=== PATIENT | female | born 1985 | race African-American/Black ===

== ENCOUNTER 2023-10-23 22:10 | Emergency (ER) | payer OTHER ==
[~2023-10-23] VITALS: Ht 170.2 cm; Wt 100.0 kg
[~2023-10-23 22:10] MED LIST: FURO20TA4 PO; PANT40TA51 PO; SPIR25TA PO
[2023-10-23 22:19] VITALS: TEMP 98.3; O2SAT 100
[2023-10-23 23:18] LABS: BASOPHILS % 0.9 % (0.0-2.0); EOSINOPHILS % 6.7 % (0.0-5.0); HEMATOCRIT. 28.9 % (36.0-48.0); HEMOGLOBIN. 9.2 g/dL (12.0-16.0); LYMPHOCYTES % 17.1 % (20.0-50.0); MEAN CORPUSCULAR HEMOGLOBIN 32.2 pg (28.0-32.0); MEAN CORPUSCULAR VOLUME 100.7 fL (81.0-99.0); MEAN PLATELET VOLUME 8.2 fl (7.4-10.4); MONOCYTES % 5.8 % (2.0-8.0); NEUTROPHILS % 69.5 % (40.0-76.0); PLATELET 191 x1000/uL (130-400); RED BLOOD CELL COUNT 2.87 mill/uL (4.2-5.4); RED CELL DISTRIBUTION WIDTH 20.5 % (11.6-14.6)
[2023-10-23 23:37] LABS: ALANINE AMINOTRANSFERASE 19 IU/L (10-49); ALBUMIN 2.3 g/dL (3.2-4.8); ASPARTATE AMINOTRANSFERASE 64 IU/L (<34); CALCIUM 7.6 mg/dL (8.7-10.4); CARBON DIOXIDE 18 mEq/L (21-32); CHLORIDE 110 mEq/L (98-107); CREATININE 1.7 mg/dL (0.6-1.0); GLUCOSE 91 mg/dL (70-105); PROTEIN TOTAL 6.9 g/dL (6.0-8.3); SODIUM 142 mEq/L (136-145); UREA NITROGEN BLOOD 7 mg/dL (9-23)
[2023-10-23 23:54] LABS: DIFFERENTIAL COMMENT 1
[2023-10-24 00:03] LABS: POTASSIUM 2.6 mEq/L (3.5-5.1)
[2023-10-24 05:36] LABS: CLARITY URINE CLOUDY (CLEAR); COLOR URINE DARK YELLOW (YELLOW); GLUCOSE URINE NEGATIVE (NEGATIVE); KETONES URINE NEGATIVE (NEGATIVE); NITRITE URINE NEGATIVE (NEGATIVE); OCCULT BLOOD URINE NEGATIVE (NEGATIVE); PROTEIN URINE NEGATIVE (NEGATIVE); SPECIFIC GRAVITY URINE 1.016 (1.005-1.030)
[2023-10-24 05:37] LABS: LEUKOCYTE ESTERASE URINE TRACE (NEGATIVE)
[2023-10-24 06:44] LABS: SQUAMOUS EPITHELIAL CELL URINE 3+ /lpf (RARE/1+)
[2023-10-24 06:46] LABS: RBC URINE 0-2 /hpf (0-2)
[2023-10-24 06:48] LABS: BACTERIA URINE TRACE
[2023-10-24] MEDS ORDERED: KETOROLAC 15MG/ML VIAL IV NR (09:00)
[2023-10-24] MEDS ORDERED: POTASSIUM CHLORIDE INJ 40 MEQ in DEXT 5% WATER 250 ML IV ONE (09:00)
[2023-10-24] MEDS ORDERED: KCL 20MEQ/100ML X 2 FOR TOTAL KCL 40MEQ/200ML IV SCH (09:15)
[2023-10-24 13:39] LABS: HCG SCREEN NEGATIVE
[2023-10-24 14:39] VITALS: BP 115/65; PULSE 89; RESP 14
== END 2023-10-24 14:49 | disposition short-term general hospital (02) ==
LOC: ER 22:10
DX: K74.60 Unspecified cirrhosis of liver (principal); I12.9 Hypertensive chronic kidney disease with stage 1 through stage 4 chronic kidney disease, or unspecified chronic kidney disease; N18.9 Chronic kidney disease, unspecified; E87.6 Hypokalemia
CPT/HCPCS: 80053; 81025; 83880; 83690; 85025; 36415; 71045; 93005; 99291; 81003; 84703; 74176; 96365; 96375; J1885; J3480; Z7610 ×2; 99285

== ENCOUNTER 2023-12-29 13:49 | Emergency (ER) | payer OTHER ==
[~2023-12-29] VITALS: Ht 170.2 cm; Wt 93.0 kg
[2023-12-29 13:57] VITALS: BP 117/44; PULSE 66; RESP 16; TEMP 98.3; O2SAT 100
== END 2023-12-29 15:51 | disposition home or self-care (01) ==
LOC: ER 13:49
DX: R18.8 Other ascites (principal); K72.90 Hepatic failure, unspecified without coma; I10 Essential (primary) hypertension
CPT/HCPCS: 99281

== ENCOUNTER 2024-02-09 04:22 | Emergency (ER) | payer OTHER ==
[~2024-02-09] VITALS: Ht 170.2 cm; Wt 104.0 kg
[2024-02-09 04:25] VITALS: TEMP 98.7; O2SAT 100
[2024-02-09 04:58] LABS: EOSINOPHILS % 3.3 % (0.0-5.0); HEMATOCRIT. 25.5 % (36.0-48.0); HEMOGLOBIN. 8.5 g/dL (12.0-16.0); LYMPHOCYTES % 34.8 % (20.0-50.0); MEAN CORPUSCULAR HEMOGLOBIN 30.6 pg (28.0-32.0); MEAN CORPUSCULAR HGB CONC 33.2 g/dL (31.0-37.0); MEAN PLATELET VOLUME 8.4 fl (7.4-10.4); MONOCYTES % 9.7 % (2.0-8.0); NEUTROPHILS % 51.2 % (40.0-76.0); PLATELET 142 x1000/uL (130-400); RED BLOOD CELL COUNT 2.77 mill/uL (4.2-5.4); RED CELL DISTRIBUTION WIDTH 13.4 % (11.6-14.6); WHITE BLOOD COUNT 4.5 x1000/uL (4.5-11.0)
[2024-02-09 05:12] LABS: CLARITY URINE TURBID (CLEAR); COLOR URINE DARK YELLOW (YELLOW); GLUCOSE URINE NEGATIVE (NEGATIVE); KETONES URINE NEGATIVE (NEGATIVE); LEUKOCYTE ESTERASE URINE NEGATIVE (NEGATIVE); NITRITE URINE NEGATIVE (NEGATIVE); OCCULT BLOOD URINE NEGATIVE (NEGATIVE); PH URINE 6.5 (4.5-8.0); PROTEIN URINE NEGATIVE (NEGATIVE); SPECIFIC GRAVITY URINE 1.023 (1.005-1.030)
[2024-02-09 05:17] LABS: ALANINE AMINOTRANSFERASE < 7 IU/L (10-49); ALBUMIN 2.9 g/dL (3.2-4.8); ASPARTATE AMINOTRANSFERASE 29 IU/L (<34); BILIRUBIN TOTAL 1.7 mg/dL (0.1-1.0); CALCIUM 8.3 mg/dL (8.7-10.4); CARBON DIOXIDE 20 mEq/L (21-32); CHLORIDE 113 mEq/L (98-107); CREATININE 0.6 mg/dL (0.6-1.0); GLUCOSE 78 mg/dL (70-105); POTASSIUM 3.2 mEq/L (3.5-5.1); PROTEIN TOTAL 6.6 g/dL (6.0-8.3); SODIUM 140 mEq/L (136-145); UREA NITROGEN BLOOD 8 mg/dL (9-23)
[2024-02-09 05:38] LABS: BACTERIA URINE 2+; CALCIUM OXALATE CRYSTALS URINE 2+ /lpf; SQUAMOUS EPITHELIAL CELL URINE 1+ /lpf (RARE/1+); WBC URINE 0-2 /hpf (0-2)
[2024-02-09 06:59] VITALS: BP 107/66; PULSE 76; RESP 16
== END 2024-02-09 07:25 | disposition home or self-care (01) ==
LOC: ER 04:22
DX: K72.10 Chronic hepatic failure without coma (principal); J45.909 Unspecified asthma, uncomplicated; Z98.890 Other specified postprocedural states
CPT/HCPCS: 36415; 80053; 81003; 81025; 85025; 93005; 99284

== ENCOUNTER 2024-09-16 08:58 | Emergency (ER) | payer OTHER ==
[~2024-09-16] VITALS: Ht 170.2 cm; Wt 137.0 kg
[2024-09-16 09:00] VITALS: O2SAT 100
[2024-09-16 10:00] LABS: BASOPHILS % 0.5 % (0.0-2.0); DIFFERENTIAL COMMENT 0; EOSINOPHILS % 0.9 % (0.0-5.0); HEMATOCRIT. 31.2 % (36.0-48.0); HEMOGLOBIN. 10.2 g/dL (12.0-16.0); LYMPHOCYTES % 20.5 % (20.0-50.0); MEAN CORPUSCULAR HEMOGLOBIN 25.2 pg (28.0-32.0); MEAN CORPUSCULAR HGB CONC 32.9 g/dL (31.0-37.0); MEAN CORPUSCULAR VOLUME 76.7 fL (81.0-99.0); MEAN PLATELET VOLUME 7.8 fl (7.4-10.4); MONOCYTES % 6.2 % (2.0-8.0); NEUTROPHILS % 71.9 % (40.0-76.0); PLATELET 156 x1000/uL (130-400); RED BLOOD CELL COUNT 4.06 mill/uL (4.2-5.4); RED CELL DISTRIBUTION WIDTH 16.9 % (11.6-14.6); WHITE BLOOD COUNT 4.6 x1000/uL (4.5-11.0)
[2024-09-16 10:05] LABS: CHLORIDE 104 mEq/L (98-107); POTASSIUM 3.5 mEq/L (3.5-5.1); SODIUM 139 mEq/L (136-145)
[2024-09-16 10:06] LABS: CARBON DIOXIDE 24 mEq/L (21-32)
[2024-09-16 10:11] LABS: CREATININE 0.7 mg/dL (0.6-1.0); GLUCOSE 101 mg/dL (70-105); PROTHROMBIN TIME 11.3 sec (9.6-11.0); UREA NITROGEN BLOOD 7 mg/dL (9-23)
[2024-09-16 10:13] LABS: ALANINE AMINOTRANSFERASE 26 IU/L (10-49); ALBUMIN 4.3 g/dL (3.2-4.8); ASPARTATE AMINOTRANSFERASE 76 IU/L (<34); BILIRUBIN DIRECT 0.6 mg/dL (<=3.0); BILIRUBIN TOTAL 1.7 mg/dL (0.1-1.0); PROTEIN TOTAL 8.1 g/dL (6.0-8.3)
[2024-09-16] MEDS: ONDANSETRON HCL 4MG/2ML INJ IV ONE (10:14)
[2024-09-16 10:17] LABS: TROPONIN I HIGH SENSITIVITY < 4 ng/L (3.0-34)
[2024-09-16] MEDS: FAMOTIDINE 20MG/2ML VIAL IV ONE (10:20)
[2024-09-16] MEDS: SODIUM CHLORIDE 0.9% 500 ML IV ONE (10:20)
[2024-09-16] MEDS: KETOROLAC 15MG/ML VIAL IV ONE (11:09)
[2024-09-16] MEDS: DIPHENHYDRAMINE 50MG/ML VIAL IV ONE (11:09)
[2024-09-16 11:43] VITALS: BP 129/53; PULSE 85; RESP 18; TEMP 36.78072; O2SAT 99
== END 2024-09-16 12:19 | disposition short-term general hospital (02) ==
LOC: ER 09:09 → EDBEDREQ 09:52 → CANBEDREQ 12:19 → ER 12:19
DX: K80.00 Calculus of gallbladder with acute cholecystitis without obstruction (principal); J45.909 Unspecified asthma, uncomplicated; Z98.890 Other specified postprocedural states
CPT/HCPCS: 80076; 80048; 81025; 82962; 83690; 85025; 85610; 84484; 36415; 71045; 76705; 93005; 96361; 96374; 96375; 99285; J1200; J3490; J1885; J2405; J7040; Z7610 ×2

== ENCOUNTER 2024-09-19 05:02 | Emergency (ER) | payer OTHER ==
[~2024-09-19] VITALS: Ht 175.3 cm; Wt 90.0 kg
[2024-09-19 05:09] VITALS: O2SAT 99
[2024-09-19] MEDS ORDERED: SODIUM CHLORIDE 0.9% 1,000 ML IV ONE (05:30)
[2024-09-19 06:06] LABS: CHLORIDE 109 mEq/L (98-107); POTASSIUM 3.7 mEq/L (3.5-5.1); SODIUM 139 mEq/L (136-145)
[2024-09-19 06:07] LABS: CALCIUM 9.5 mg/dL (8.7-10.4); CARBON DIOXIDE 22 mEq/L (21-32)
[2024-09-19 06:10] LABS: AMMONIA < 17 uMol/L (<32); BASOPHILS % 0.4 % (0.0-2.0); DIFFERENTIAL COMMENT 0; EOSINOPHILS % 5.1 % (0.0-5.0); HEMATOCRIT. 32.6 % (36.0-48.0); HEMOGLOBIN. 10.7 g/dL (12.0-16.0); INR 1.1; MEAN CORPUSCULAR HEMOGLOBIN 26.2 pg (28.0-32.0); MEAN CORPUSCULAR VOLUME 79.5 fL (81.0-99.0); MEAN PLATELET VOLUME 7.9 fl (7.4-10.4); MONOCYTES % 6.2 % (2.0-8.0); NEUTROPHILS % 58.3 % (40.0-76.0); PLATELET 138 x1000/uL (130-400); PROTHROMBIN TIME 11.9 sec (9.6-11.0); RED BLOOD CELL COUNT 4.09 mill/uL (4.2-5.4); RED CELL DISTRIBUTION WIDTH 17.1 % (11.6-14.6); WHITE BLOOD COUNT 4.5 x1000/uL (4.5-11.0)
[2024-09-19 06:12] LABS: CREATININE 0.7 mg/dL (0.6-1.0); GLUCOSE 93 mg/dL (70-105); UREA NITROGEN BLOOD 8 mg/dL (9-23)
[2024-09-19 06:14] LABS: ALANINE AMINOTRANSFERASE 19 IU/L (10-49); ALBUMIN 4.3 g/dL (3.2-4.8); ASPARTATE AMINOTRANSFERASE 55 IU/L (<34); BILIRUBIN DIRECT 0.4 mg/dL (<=3.0)
[2024-09-19 06:15] LABS: BILIRUBIN TOTAL 1.1 mg/dL (0.1-1.0); PROTEIN TOTAL 7.9 g/dL (6.0-8.3)
[2024-09-19 06:23] LABS: ETHANOL BLOOD < 10 mg/dL (<10)
[2024-09-19 10:18] VITALS: BP 118/56; PULSE 77; RESP 18; TEMP 37.16964; O2SAT 99
== END 2024-09-19 10:43 | disposition left against medical advice (07) ==
LOC: ER 05:02 → EDBEDREQTM 10:21 → EDBEDREQ 10:21 → ER 10:43
DX: K92.2 Gastrointestinal hemorrhage, unspecified (principal); K74.60 Unspecified cirrhosis of liver; Z79.899 Other long term (current) drug therapy
CPT/HCPCS: 80076; 80048; 80320; 82140; 83605; 83690; 85025; 85610; 86850; 86900; 86901; 36415; 71045; 70450; 99285; J7030; Z7610 ×2; G0480

== ENCOUNTER 2025-01-25 11:51 | Inpatient (IN) | payer OTHER ==
[~2025-01-25] VITALS: Ht 162.6 cm; Wt 117.1 kg
[2025-01-25] MEDS: PANTOPRAZOLE SODIUM 40 MG/VIAL IV ONE (13:08)
[2025-01-25] MEDS: ONDANSETRON HCL 4MG/2ML INJ IV ONE (13:08)
[2025-01-25] MEDS: SODIUM CHLORIDE 0.9% 1,000 ML IV ONE (13:08)
[2025-01-25 13:11] LABS: BASOPHILS % 0.1 % (0.0-2.0); HEMATOCRIT. 31.6 % (36.0-48.0); HEMOGLOBIN. 10.6 g/dL (12.0-16.0); LYMPHOCYTES % 14.6 % (20.0-50.0); MEAN CORPUSCULAR HEMOGLOBIN 28.2 pg (28.0-32.0); MEAN CORPUSCULAR HGB CONC 33.6 g/dL (31.0-37.0); MEAN PLATELET VOLUME 7.8 fl (7.4-10.4); MONOCYTES % 1.2 % (2.0-8.0); NEUTROPHILS % 84.1 % (40.0-76.0); PLATELET 66 x1000/uL (130-400); RED BLOOD CELL COUNT 3.76 mill/uL (4.2-5.4); RED CELL DISTRIBUTION WIDTH 21.3 % (11.6-14.6); WHITE BLOOD COUNT 3.9 x1000/uL (4.5-11.0)
[2025-01-25 13:23] LABS: CHLORIDE 100 mEq/L (98-107); POTASSIUM 3.4 mEq/L (3.5-5.1); SODIUM 136 mEq/L (136-145)
[2025-01-25 13:24] LABS: CALCIUM 8.7 mg/dL (8.7-10.4); CARBON DIOXIDE 23 mEq/L (21-32)
[2025-01-25 13:29] LABS: CREATININE 0.8 mg/dL (0.6-1.0); GLUCOSE 120 mg/dL (70-105); UREA NITROGEN BLOOD 7 mg/dL (9-23)
[2025-01-25 13:30] LABS: LACTIC ACID 3.4 mmol/L (0.4-2.0)
[2025-01-25 13:31] LABS: ALANINE AMINOTRANSFERASE 26 IU/L (10-49); ALBUMIN 4.1 g/dL (3.2-4.8); ASPARTATE AMINOTRANSFERASE 120 IU/L (<34); BILIRUBIN DIRECT 1.4 mg/dL (<=3.0); BILIRUBIN TOTAL 3.5 mg/dL (0.1-1.0)
[2025-01-25 13:33] LABS: INR 1.3; PROTHROMBIN TIME 13.5 sec (9.6-11.0)
[2025-01-25 13:36] LABS: ETHANOL BLOOD < 10 mg/dL (<10)
[2025-01-25 13:37] LABS: HCG SCREEN NEGATIVE
[2025-01-25] MEDS: MORPHINE SULFATE 2 MG/ML INJ (NOT FOR IM USE) IV NR (13:39)
[2025-01-25] MEDS: MORPHINE SULFATE 2 MG/ML INJ (NOT FOR IM USE) IV ONE (14:40)
[2025-01-25 15:00] LABS: CLARITY URINE TURBID (CLEAR); COLOR URINE ORANGE (YELLOW); GLUCOSE URINE NEGATIVE (NEGATIVE); KETONES URINE NEGATIVE (NEGATIVE); LEUKOCYTE ESTERASE URINE 3+ (NEGATIVE); NITRITE URINE POSITIVE (NEGATIVE); OCCULT BLOOD URINE 3+ (NEGATIVE); PROTEIN URINE 3+ (NEGATIVE); SPECIFIC GRAVITY URINE 1.017 (1.005-1.030); UROBILINOGEN URINE 0.2 E.U./dL (0.2-1.0)
[2025-01-25] MEDS ORDERED: LEVOFLOXACIN 750MG PREMIX 150 ML IV NR (15:00)
[2025-01-25] MEDS: SODIUM CHLORIDE 0.9% (SEPSIS BOLUS) IV ONE (15:15)
[2025-01-25 15:18] LABS: BACTERIA URINE 2+; WBC URINE TNTC /hpf (0-2)
[2025-01-25 15:19] LABS: SQUAMOUS EPITHELIAL CELL URINE NONE SEEN /lpf (RARE/1+)
[2025-01-25] MEDS: METRONIDAZOLE 500 MG PREMIX 100 ML IV NR (16:02)
[2025-01-25 16:30] VITALS: BP 108/36; PULSE 127; RESP 20; TEMP 37.1
[2025-01-25] MEDS ORDERED: CLONIDINE 0.1MG TABLET PO PRN (16:45)
[2025-01-25] MEDS ORDERED: NALOXONE HCL 0.4MG/ML VIAL IV PRN (17:00)
[2025-01-25] MEDS: SODIUM CHLORIDE 0.9% 1,000 ML IV SCH (17:41)
[2025-01-25] MEDS: ACETAMINOPHEN 325MG TABLET PO PRN (17:47)
[2025-01-25] MEDS: PIPERACILLIN/TAZO 3.375G/50ML 50 ML IV SCH (17:47)
[2025-01-25] MEDS ORDERED: LEVO75TA7 MT (19:00)
[2025-01-25] MEDS: MORPHINE SULFATE 2 MG/ML INJ (NOT FOR IM USE) IV PRN (19:29)
[2025-01-25 20:00] VITALS: BP 122/51; PULSE 104; RESP 20; TEMP 36.6; O2SAT 92
[2025-01-25 20:26] LABS: HEPATITIS B SURFACE ANTIGEN NEGATIVE (Negative)
[2025-01-25 20:47] LABS: HEPATITIS C AB NON REACTIVE (Neg) (Negative)
[2025-01-25] MEDS: ONDANSETRON HCL 4MG/2ML INJ IV PRN (22:36)
[2025-01-25] MEDS: LEVOFLOXACIN 750MG PREMIX 150 ML IV NR (22:52)
[2025-01-26] VITALS: BP 122/51; PULSE 129; RESP 20; TEMP 36.7; O2SAT 98
[2025-01-26 04:00] VITALS: BP 126/57; PULSE 104; RESP 20; TEMP 36.3; O2SAT 100
[2025-01-26 05:54] LABS: CARBON DIOXIDE 21 mEq/L (21-32); CHLORIDE 102 mEq/L (98-107); POTASSIUM 3.1 mEq/L (3.5-5.1); SODIUM 136 mEq/L (136-145)
[2025-01-26 05:55] LABS: CALCIUM 8.4 mg/dL (8.7-10.4)
[2025-01-26 06:00] LABS: CREATININE 0.8 mg/dL (0.6-1.0); GLUCOSE 100 mg/dL (70-105); UREA NITROGEN BLOOD 10 mg/dL (9-23)
[2025-01-26 08:00] VITALS: BP 109/55; PULSE 95; RESP 22; TEMP 37.2; O2SAT 97
[2025-01-26] MEDS: PANTOPRAZOLE SODIUM 40 MG/VIAL IV SCH (08:34)
[2025-01-26 08:49] LABS: BASOPHILS % 0.1 % (0.0-2.0); DIFFERENTIAL COMMENT 0; EOSINOPHILS % 0.1 % (0.0-5.0); HEMOGLOBIN. 9.2 g/dL (12.0-16.0); LYMPHOCYTES % 10.7 % (20.0-50.0); MEAN CORPUSCULAR HEMOGLOBIN 29.1 pg (28.0-32.0); MEAN CORPUSCULAR HGB CONC 34.2 g/dL (31.0-37.0); MEAN CORPUSCULAR VOLUME 85.2 fL (81.0-99.0); MEAN PLATELET VOLUME 8.4 fl (7.4-10.4); MONOCYTES % 1.1 % (2.0-8.0); PLATELET 51 x1000/uL (130-400); RED BLOOD CELL COUNT 3.17 mill/uL (4.2-5.4); RED CELL DISTRIBUTION WIDTH 21.1 % (11.6-14.6); WHITE BLOOD COUNT 6.3 x1000/uL (4.5-11.0)
[2025-01-26 12:00] VITALS: BP 110/60; PULSE 96; RESP 20; TEMP 37; O2SAT 98
[2025-01-26] MEDS ORDERED: KCL 20MEQ/100ML PREMIX 100 ML IV SCH (12:00)
[2025-01-26] MEDS: POTASSIUM CHLORIDE 40MEQ in DEXT 5% WATER 250ML IV NR (13:53)
[2025-01-26] MEDS ORDERED: VANCOMYCIN 2,000 MG in DEXT 5% WATER 500 ML IV NR (14:00)
[2025-01-26 16:00] VITALS: BP 108/89; PULSE 98; RESP 20; TEMP 36.8; O2SAT 95
[2025-01-26 20:50] VITALS: BP 107/38; PULSE 96; RESP 20; TEMP 36.3; O2SAT 98
[2025-01-26] MEDS: LACTOBACILLUS GG CAPSULE PO SCH (20:58)
[2025-01-27] VITALS: BP 131/77; PULSE 125; RESP 18; TEMP 36.2; O2SAT 96
[2025-01-27] MEDS ORDERED: VANCOMYCIN 1G PREMIX 200 ML IV SCH
[2025-01-27] MEDS ORDERED: LEVETIRACETAM 1,000MG in NACL 100ML PREMIX IV ONE (00:30)
[2025-01-27] MEDS: LORAZEPAM 2MG/ML INJ IV PRN (00:52)
[2025-01-27] MEDS: LEVETIRACETAM 1000MG PREMIX 100 ML IV NR (01:26)
[2025-01-27 07:25] LABS: CHLORIDE 102 mEq/L (98-107); POTASSIUM 3.1 mEq/L (3.5-5.1); SODIUM 135 mEq/L (136-145)
[2025-01-27 07:27] LABS: CARBON DIOXIDE 25 mEq/L (21-32)
[2025-01-27 07:32] LABS: BASOPHILS % 0.1 % (0.0-2.0); CREATININE 0.6 mg/dL (0.6-1.0); EOSINOPHILS % 0.8 % (0.0-5.0); HEMATOCRIT. 28.7 % (36.0-48.0); HEMOGLOBIN. 9.5 g/dL (12.0-16.0); LYMPHOCYTES % 24.2 % (20.0-50.0); MEAN CORPUSCULAR HEMOGLOBIN 27.8 pg (28.0-32.0); MEAN CORPUSCULAR HGB CONC 32.9 g/dL (31.0-37.0); MEAN CORPUSCULAR VOLUME 84.4 fL (81.0-99.0); MEAN PLATELET VOLUME 8.1 fl (7.4-10.4); NEUTROPHILS % 72.9 % (40.0-76.0); PLATELET 52 x1000/uL (130-400); RED BLOOD CELL COUNT 3.41 mill/uL (4.2-5.4); WHITE BLOOD COUNT 4.4 x1000/uL (4.5-11.0)
[2025-01-27 07:33] LABS: GLUCOSE 92 mg/dL (70-105)
[2025-01-27 07:34] LABS: ALANINE AMINOTRANSFERASE 16 IU/L (10-49); ALBUMIN 3.3 g/dL (3.2-4.8); ASPARTATE AMINOTRANSFERASE 64 IU/L (<34); UREA NITROGEN BLOOD 10 mg/dL (9-23)
[2025-01-27 07:36] LABS: BILIRUBIN TOTAL 2.1 mg/dL (0.1-1.0); PROTEIN TOTAL 6.6 g/dL (6.0-8.3)
[2025-01-27 08:00] VITALS: BP 119/71; PULSE 97; RESP 20; TEMP 36.7; O2SAT 100
[2025-01-27] MEDS ORDERED: LEVETIRACETAM 500MG in NACL 100ML PREMIX IV SCH (09:00)
[2025-01-27] MEDS: LEVETIRACETAM 500MG PREMIX 100ML IV SCH (11:42)
[2025-01-27 12:00] VITALS: BP 120/78; PULSE 89; RESP 18; TEMP 36.7; O2SAT 99
[2025-01-27] MEDS: POTASSIUM CHLORIDE 20MEQ TABLET SR PO NR (15:31)
[2025-01-27 15:52] VITALS: TEMP 38.7
[2025-01-27 20:00] VITALS: BP_SYST 102; BP_SYST 113; BP_DIAS 52; BP_DIAS 67; PULSE 103; PULSE 84; RESP 20; TEMP 36.6; TEMP 37.3; O2SAT 100; O2SAT 98
[2025-01-27] MEDS: MORPHINE SULFATE 2 MG/ML INJ (NOT FOR IM USE) IV PRN (20:41)
[2025-01-28] VITALS (7 sets, daily range): BP systolic 106–121; BP diastolic 39–65; PULSE 75–90; RESP 18–20; TEMP 36.3–36.6; O2SAT 97–100
[2025-01-28 06:46] LABS: BASOPHILS % 0.4 % (0.0-2.0); HEMOGLOBIN. 8.9 g/dL (12.0-16.0); LYMPHOCYTES % 45.8 % (20.0-50.0); MEAN CORPUSCULAR HEMOGLOBIN 27.4 pg (28.0-32.0); MEAN CORPUSCULAR HGB CONC 32.8 g/dL (31.0-37.0); MEAN CORPUSCULAR VOLUME 83.5 fL (81.0-99.0); MEAN PLATELET VOLUME 8.6 fl (7.4-10.4); MONOCYTES % 3.8 % (2.0-8.0); PLATELET 57 x1000/uL (130-400); RED BLOOD CELL COUNT 3.24 mill/uL (4.2-5.4); RED CELL DISTRIBUTION WIDTH 22.1 % (11.6-14.6); WHITE BLOOD COUNT 2.9 x1000/uL (4.5-11.0)
[2025-01-28 06:59] LABS: CHLORIDE 102 mEq/L (98-107); POTASSIUM 2.9 mEq/L (3.5-5.1); SODIUM 136 mEq/L (136-145)
[2025-01-28 07:01] LABS: CARBON DIOXIDE 24 mEq/L (21-32)
[2025-01-28 07:02] LABS: CALCIUM 8.2 mg/dL (8.7-10.4)
[2025-01-28 07:06] LABS: CREATININE 0.6 mg/dL (0.6-1.0)
[2025-01-28 07:07] LABS: DIFFERENTIAL COMMENT 1; GLUCOSE 91 mg/dL (70-105); UREA NITROGEN BLOOD 8 mg/dL (9-23)
[2025-01-28 07:08] LABS: ADD RBC MORPHOLOGY YES; ALANINE AMINOTRANSFERASE 13 IU/L (10-49); ALBUMIN 3.3 g/dL (3.2-4.8); ASPARTATE AMINOTRANSFERASE 53 IU/L (<34)
[2025-01-28 07:09] LABS: BILIRUBIN DIRECT 0.8 mg/dL (<=3.0); BILIRUBIN TOTAL 1.8 mg/dL (0.1-1.0); PROTEIN TOTAL 6.5 g/dL (6.0-8.3)
[2025-01-28 10:34] LABS: ANISOCYTOSIS 3+; PLATELET ESTIMATE MARKEDLY DECREASED
[2025-01-29 04:00] VITALS: BP 128/78; PULSE 82; RESP 18; TEMP 36.4; O2SAT 98
[2025-01-29 08:15] LABS: ALANINE AMINOTRANSFERASE 14 IU/L (10-49)
[2025-01-29 08:16] LABS: ALBUMIN 3.6 g/dL (3.2-4.8); ASPARTATE AMINOTRANSFERASE 50 IU/L (<34); BILIRUBIN DIRECT 0.7 mg/dL (<=3.0); BILIRUBIN TOTAL 1.4 mg/dL (0.1-1.0)
[2025-01-29 08:51] VITALS: BP 114/50; PULSE 68; RESP 20; TEMP 36.6; O2SAT 98
[2025-01-29 12:25] VITALS: BP 107/36; PULSE 81; RESP 20; TEMP 36.6; O2SAT 97
[2025-01-29 16:53] VITALS: BP 97/55; PULSE 68; RESP 18; TEMP 37.2; O2SAT 97
[2025-01-29 20:00] VITALS: BP 98/44; PULSE 70; RESP 18; TEMP 37; O2SAT 95
[2025-01-30] VITALS: BP 102/58; PULSE 75; RESP 18; TEMP 36.8; O2SAT 97
[2025-01-30 04:00] VITALS: BP 123/48; PULSE 66; RESP 20; TEMP 37.1; O2SAT 99
[2025-01-30 08:00] VITALS: BP 103/57; PULSE 68; RESP 20; TEMP 37; O2SAT 98
[2025-01-30 12:00] VITALS: BP 129/49; PULSE 66; RESP 20; TEMP 36.5; O2SAT 100
[2025-01-30] MEDS ORDERED: KEPP500 MT (12:55)
[2025-01-30] MEDS ORDERED: LEVO-65 MT (12:55)
[2025-01-30] MEDS ORDERED: HYDR-4001 MT (12:55)
[2025-01-30 17:18] VITALS: BP 108/51; PULSE 66; RESP 20; TEMP 37.1; O2SAT 100
[2025-01-30 18:39] VITALS: BP 108/51; PULSE 66; TEMP 98.7; O2SAT 100
== END 2025-01-30 19:00 | disposition home or self-care (01) | DRG 720 ==
LOC: ER 11:51 → EDBEDREQ 12:14 → 7WST 15:24 → EDBEDREQ 15:26
PROVIDERS: ADMIT Internal Medicine; ATTEND Internal Medicine
DX: A41.59 Other Gram-negative sepsis (principal); E87.20 Acidosis, unspecified; K76.6 Portal hypertension; K80.00 Calculus of gallbladder with acute cholecystitis without obstruction; K70.30 Alcoholic cirrhosis of liver without ascites; R65.20 Severe sepsis without septic shock; J45.909 Unspecified asthma, uncomplicated; N39.0 Urinary tract infection, site not specified; E66.01 Morbid (severe) obesity due to excess calories; R56.9 Unspecified convulsions; Z98.84 Bariatric surgery status; Z68.41 Body mass index [BMI] 40.0-44.9, adult
CPT/HCPCS: 36415; 70551; 71045; 74177; 74181; 76705; 80048; 80076; 80320; 81003; 83605; 84132; 84145; 84703; 85025; 86705; 87077; 87186; 87340; 93970; 99291; A4606; C1893; J1953; J1956; J2060; J2270; J2405; J2470; J2543; J3370; J3480; J3490; J7030; J7060; G0480

== ENCOUNTER 2025-02-03 22:09 | Emergency (ER) | payer OTHER ==
[~2025-02-03] VITALS: Ht 170.2 cm; Wt 115.0 kg
[~2025-02-03 22:09] MED LIST changes: +HYDR-4001 MT; +KEPP500 MT; +LEVO-65 MT; +LEVO75TA7 MT
[2025-02-03 22:10] VITALS: O2SAT 98
[2025-02-03] MEDS: LACTULOSE 20G/30ML UDC PO ONE (23:42)
[2025-02-03 23:47] LABS: HEMATOCRIT. 32.6 % (36.0-48.0); HEMOGLOBIN. 10.7 g/dL (12.0-16.0); MEAN CORPUSCULAR HEMOGLOBIN 27.9 pg (28.0-32.0); MEAN CORPUSCULAR HGB CONC 32.8 g/dL (31.0-37.0); MEAN CORPUSCULAR VOLUME 85.3 fL (81.0-99.0); MEAN PLATELET VOLUME 8.7 fl (7.4-10.4); PLATELET 479 x1000/uL (130-400); RED BLOOD CELL COUNT 3.82 mill/uL (4.2-5.4); RED CELL DISTRIBUTION WIDTH 25.4 % (11.6-14.6); WHITE BLOOD COUNT 5.8 x1000/uL (4.5-11.0)
[2025-02-03 23:49] LABS: DIFFERENTIAL COMMENT 1
[2025-02-04 00:07] LABS: CHLORIDE 106 mEq/L (98-107); POTASSIUM 4.5 mEq/L (3.5-5.1); SODIUM 139 mEq/L (136-145)
[2025-02-04 00:08] LABS: CALCIUM 9.4 mg/dL (8.7-10.4); CARBON DIOXIDE 21 mEq/L (21-32)
[2025-02-04 00:13] LABS: CREATININE 0.7 mg/dL (0.6-1.0); GLUCOSE 95 mg/dL (70-105)
[2025-02-04 00:15] LABS: ALANINE AMINOTRANSFERASE 22 IU/L (10-49); ALBUMIN 4.5 g/dL (3.2-4.8); AMMONIA 74 uMol/L (<32); ASPARTATE AMINOTRANSFERASE 64 IU/L (<34); BILIRUBIN DIRECT 0.6 mg/dL (<=3.0); BILIRUBIN TOTAL 1.4 mg/dL (0.1-1.0); PROTEIN TOTAL 8.5 g/dL (6.0-8.3)
[2025-02-04 00:16] LABS: *AMPHETAMINES SCREEN URINE NEGATIVE (NEGATIVE); *BARBITURATES SCREEN URINE NEGATIVE (NEGATIVE); *BENZODIAZEPINES SCREEN URINE PRESUMPTIVE POSITIVE (NEGATIVE); *COCAINE SCREEN URINE NEGATIVE (NEGATIVE)
[2025-02-04 00:17] LABS: CANNABINOID URINE SCREEN NEGATIVE (NEGATIVE); ECSTASY MDMA SCREEN URINE NEGATIVE (NEGATIVE); METHADONE URINE SCREEN NEGATIVE (NEGATIVE); OPIATES URINE SCREEN PRESUMPTIVE POSITIVE (NEGATIVE); PHENCYCLIDINE URINE SCREEN NEGATIVE (NEGATIVE)
[2025-02-04 00:27] LABS: ETHANOL BLOOD < 10 mg/dL (<10); UREA NITROGEN BLOOD < 5 mg/dL (9-23)
[2025-02-04 01:30] VITALS: BP 115/45; PULSE 53; RESP 11; TEMP 36.9; O2SAT 96
[2025-02-04] MEDS ORDERED: LACT-394 MT (01:34)
== END 2025-02-04 02:00 | disposition home or self-care (01) ==
LOC: ER 22:09
DX: K76.82 Hepatic encephalopathy (principal); I10 Essential (primary) hypertension; J45.909 Unspecified asthma, uncomplicated; R41.82 Altered mental status, unspecified; Z79.899 Other long term (current) drug therapy
CPT/HCPCS: 36415; 80048; 80076; 80305; 80320; 82140; 83605; 85025; 93005; 99284; G0480

== ENCOUNTER 2025-06-25 16:01 | Emergency (ER) | payer OTHER ==
[~2025-06-25] VITALS: Ht 175.3 cm; Wt 82.0 kg
[~2025-06-25 16:01] MED LIST changes: +LACT-394 MT
[2025-06-25 16:08] VITALS: O2SAT 99
[2025-06-25 17:48] LABS: BASOPHILS % 0.6 % (0.0-2.0); EOSINOPHILS % 1.6 % (0.0-5.0); HEMATOCRIT. 34.2 % (36.0-48.0); HEMOGLOBIN. 10.7 g/dL (12.0-16.0); LYMPHOCYTES % 37.2 % (20.0-50.0); MEAN PLATELET VOLUME 7.6 fl (7.4-10.4); MONOCYTES % 2.4 % (2.0-8.0); NEUTROPHILS % 58.2 % (40.0-76.0); PLATELET 230 x1000/uL (130-400); RED BLOOD CELL COUNT 4.48 mill/uL (4.2-5.4); RED CELL DISTRIBUTION WIDTH 22.7 % (11.6-14.6)
[2025-06-25 17:50] LABS: ADD RBC MORPHOLOGY YES
[2025-06-25 18:02] LABS: CREATININE 0.6 mg/dL (0.6-1.0); UREA NITROGEN BLOOD < 5 mg/dL (9-23)
[2025-06-25 19:49] LABS: PLATELET ESTIMATE NORMAL
[2025-06-25 20:32] LABS: HCG SCREEN NEGATIVE
[2025-06-25 20:35] LABS: ETHANOL BLOOD 130 mg/dL (<10)
[2025-06-25 20:37] LABS: ASPARTATE AMINOTRANSFERASE 70 IU/L (<34); BILIRUBIN DIRECT 0.6 mg/dL (<=3.0); BILIRUBIN TOTAL 1.9 mg/dL (0.1-1.0); PROTEIN TOTAL 8.4 g/dL (6.0-8.3)
[2025-06-25 20:38] LABS: INR 1.2
[2025-06-25] MEDS: ONDANSETRON HCL 4MG/2ML INJ IV ONE (22:12)
[2025-06-25] MEDS: PANTOPRAZOLE SODIUM 40 MG/VIAL IV ONE (22:12)
[2025-06-25] MEDS: DIPHENHYDRAMINE 50MG/ML VIAL IV ONE (22:12)
[2025-06-25 22:15] LABS: CLARITY URINE CLOUDY (CLEAR); COLOR URINE ORANGE (YELLOW); GLUCOSE URINE NEGATIVE (NEGATIVE); KETONES URINE 1+ (NEGATIVE); LEUKOCYTE ESTERASE URINE 1+ (NEGATIVE); NITRITE URINE POSITIVE (NEGATIVE); OCCULT BLOOD URINE 3+ (NEGATIVE); PH URINE 6.0 (4.5-8.0); PROTEIN URINE 2+ (NEGATIVE); SPECIFIC GRAVITY URINE 1.036 (1.005-1.030); UROBILINOGEN URINE 1.0 E.U./dL (0.2-1.0)
[2025-06-25 22:23] LABS: BACTERIA URINE 2+; SQUAMOUS EPITHELIAL CELL URINE 2+ /lpf (RARE/1+)
[2025-06-25 22:24] LABS: *AMPHETAMINES SCREEN URINE NEGATIVE (NEGATIVE); *BARBITURATES SCREEN URINE NEGATIVE (NEGATIVE); *BENZODIAZEPINES SCREEN URINE NEGATIVE (NEGATIVE)
[2025-06-25 22:25] LABS: *COCAINE SCREEN URINE NEGATIVE (NEGATIVE); CANNABINOID URINE SCREEN NEGATIVE (NEGATIVE); ECSTASY MDMA SCREEN URINE NEGATIVE (NEGATIVE); METHADONE URINE SCREEN NEGATIVE (NEGATIVE); OPIATES URINE SCREEN NEGATIVE (NEGATIVE); PHENCYCLIDINE URINE SCREEN NEGATIVE (NEGATIVE)
[2025-06-25 22:38] VITALS: BP 137/65; PULSE 86; RESP 13; TEMP 37.5; O2SAT 98
== END 2025-06-25 23:15 | disposition short-term general hospital (02) ==
LOC: ER 16:21 → CMPBEDREQ 06-27 07:42
DX: K92.2 Gastrointestinal hemorrhage, unspecified (principal); E83.42 Hypomagnesemia; F10.129 Alcohol abuse with intoxication, unspecified; I10 Essential (primary) hypertension; J45.909 Unspecified asthma, uncomplicated; Z98.890 Other specified postprocedural states; Z79.899 Other long term (current) drug therapy; Y90.6 Blood alcohol level of 120-199 mg/100 ml
CPT/HCPCS: 80076; 80305; 80048; 81003; 80320; 84703; 83690; 83735; 85025; 85610; 85730; 86850; 86900; 86901; 36415; 74176; 96374; 96375; 99285; J1200; J2405; J2470; G0480